=== PATIENT | male | born 1965 | race Caucasian/White ===

== ENCOUNTER 2024-05-17 09:37 | Outpatient (REF) | payer OTHER, SELFPAY ==
[2024-05-17 11:07] LABS: MANUAL DIFF FLAG NO
[2024-05-17 11:10] LABS: Basophils Percent Auto 0.5 % (0-2); Eosinophils Absolute Auto 0.1 X10*3/uL (0.0-0.4); Eosinophils Percent Auto 1.4 % (0-4); Hematocrit 42.7 % (42.0-52.0); Hemoglobin 13.9 g/dl (14.0-18.0); Imm Gran Abs Auto 0.04 X10*3/uL (0.00-0.03); Imm Gran Pct Auto 0.5 % (0.0-0.4); Lymphocytes Absolute Auto 2.8 X10*3/uL (1.2-4.9); Lymphocytes Percent Auto 35.9 % (20-40); Mean Corpuscular HGB Conc 32.6 g/dl (31.0-36.0); Mean Corpuscular Hemoglobin 29.9 pg (27.0-33.0); Mean Corpuscular Volume 91.8 fL (80.0-98.0); Mean Platelet Volume 9.8 fL (9.4-12.4); Monocytes Absolute Auto 0.6 X10*3/uL (0.1-1.2); Monocytes Percent Auto 7.5 % (2-11); Neutrophils Absolute Auto 4.3 x10*3/uL (2.0-8.3); Neutrophils Percent Auto 54.2 % (45-73); Platelet Count 247 X10*3/uL (160-400); Red Blood Count 4.65 X10*6/uL (4.60-5.80); Red Cell Distribution Width 12.9 % (11.0-16.0); White Blood Count 7.9 X10*3/uL (4.8-10.8)
[2024-05-17 11:25] LABS: Alanine Aminotransferase 38 U/L (0-40); Albumin Level 4.3 g/dL (3.5-5.0); Alkaline Phosphatase 62 U/L (39-117); Anion Gap 10 (12-20); Aspartate Amino Transferase 28 U/L (5-37); Bilirubin Total 0.4 mg/dL (0.0-1.0); Blood Urea Nitrogen 22 mg/dL (9-16); Carbon Dioxide 28 mmol/L (22-29); Chloride 104 mmol/L (96-108); Cholesterol 225 mg/dL (<200); Estimated Glomerular Filt Rate > 60; Glucose Fasting 106 mg/dL (60-99); HDL Cholesterol 65 mg/dL (>40); LDL Cholesterol Calculated 141 mg/dL (<100); Potassium 4.3 mmol/L (3.3-5.1); Sodium 138 mmol/L (135-145); Total Protein 7.2 g/dL (6.5-8.0); Triglycerides 97 mg/dL (<150)
[2024-05-17 11:50] LABS: Erythrocyte Sedimentation Rate 3 MM/HR (0-15)
[2024-05-17 11:57] LABS: Prostate Specific Antigen 0.44 ng/mL (<0.05-4.0)
== END 2024-05-17 09:38 | disposition home or self-care (01) ==
LOC: HO.10HDL 09:37
PROVIDERS: Visit Provider Internal Medicine Medical Oncology
DX: Z12.5 Encounter for screening for malignant neoplasm of prostate (principal); E78.5 Hyperlipidemia, unspecified; N40.0 Benign prostatic hyperplasia without lower urinary tract symptoms; T14.8XXA Other injury of unspecified body region, initial encounter
CPT/HCPCS: 36415; 80053; 80061; 84153; 85025; 85652

== ENCOUNTER 2025-05-22 10:02 | Outpatient (REF) | payer OTHER, SELFPAY ==
--- OUTSIDE RECORDS SUMMARY | 2024-05-09 04:36 | XMS_ITS ---
Author Organization Tristen Braxton III, MD Address [address] [place] [address] [place] [address] Care Team Providers Care Supervisor Machine Setter Name Role Phone Dr. Tristen Braxton III Primary Care Provider [phone] REASON FOR VISIT ? Rx Social History Sex Assigned At : Social History Observation Description Sex Assigned At Male Encounters Encounter Location Date Provider Diagnosis Tristen Braxton III, MD [address] [place] [address] [place] [address] 05/09/2024 Tristen Braxton Plan Of Treatment Next Appt Details Provider Name:Tristen Braxton , 05/26/2025 01:45:00 PM, [address] [place] [address] [address], [place], [address], Progress Notes * LUCIO BACONDOB: [birth year] (58 yo M)Acc No.[id number]:05/09/2024 Patient: Bulmaro LUCIO DIEHL :1965 A ge:58 Y S ex:Male Address:[address], [address], [place], [address] * true * Date: Generated for Tin george/Slim/eTransmitting on: 07/22/2024 09:01 PM EST
--- OUTSIDE RECORDS SUMMARY | 2024-05-09 06:25 | XMS_ITS ---
Author Organization Tristen Braxton III, MD Address [address] [place] [address] [place] [address] Care Team Providers Care News Videotape Editor Name Role Phone Dr. Tristen Braxton III Primary Care Provider [phone] Medications Medication SIG (Take, Route, Frequency, Duration) Notes Start Date End Date Status Amoxicillin-Pot Clavulanate 875-125 MG 1 tablet Orally every 12 hrs for 7 days 05/09/2024 05/16/2024 Active Social History Sex Assigned At : Social History Observation Description Sex Assigned At Male Encounters Encounter Location Date Provider Diagnosis Tristen Braxton III, MD [address] [place] [address] [place] [address] 05/09/2024 Tristen Braxton Plan Of Treatment Medication Medication Name Sig Start Date Stop Date Notes Amoxicillin-Pot Clavulanate 875-125 MG 1 tablet Orally every 12 hrs for 7 days 05/09/2024 05/16/2024 Next Appt Details Provider Name:Tristen Braxton , 05/26/2025 01:45:00 PM, [address] [place] [address] [place], [address], Progress Notes * LUCIO FERRERDOB: [birth year] (58 yo M)Acc No.[id number]:05/09/2024 Patient: Bulmaro SHANITALUCIO :1965 A ge:58 Y S ex:Male Address:[address], [address], [place], [address] * Refills Start Amoxicillin-Pot Clavulanate Tablet, 875-125 MG, Orally, 14 Tablet, 1 tablet, every 12 hrs, 7 days, Refills=0 * true * Date: Generated for Tin george/Slim/Hudson on: 07/22/2024 08:57 PM EST
--- OUTSIDE RECORDS SUMMARY | 2024-05-11 05:00 | XMS_ITS ---
Author Organization Tristen Braxton III, MD Address [address] [place] [address] [place] [address] Care Team Providers Care Jet Blade Polisher Name Role Phone Dr. Tristen Braxton III Primary Care Provider Allergies Allergen (clinical drug ingredient) Drug/Non Drug Allergy documented on EMR Reaction Allergy Type Onset Date Status No Known Drug Allergy Unknown Drug Allergy Active Reason For Referral Reason Consult and treat Hearing loss, Vertigo, Tinnitus, right ear pain for 1 month no result with Rx's Diagnosis 1 Hearing loss (H91.90 ) Diagnosis 2 Vertigo (R42) Diagnosis 3 Ear pain, right (H92 .01) Diagnosis 4 Tinnitus (H93.19) Referral Organization Tristen Braxton III, MD Referring Provider First Name Tristen Referring Provider Last Name Irais Referring Provider Speciality Internal M edicine Referred Provider [facility], [facility], [facility] Referred Provider Specialty Otolaryngolo gy General Notes Denisse Franco 05/13/2024 10:38:53 AM > Referral, cover sheet and progress note faxed, Denisse Franco 05/19/2024 09:45:16 AM > patient is scheduled with Dr. Hyman on 06/14/24 Referral Priority Routine Referral Appointment Date 06/14/2024 REASON FOR VISIT Vertigo, Labyrinthitis, Hearing loss, Tinnitus Medications Medication SIG (Take, Route, Frequency, Duration) Notes Start Date End Date Status Triamcinolone Acetonide 0.1 % APPLY DAILY TO SKIN TO AFFECTED AREA TWICE A DAY FOR 2 WEEKS Active Meclizine HCl 25 MG 1 tablet as needed Orally every 8 hrs 05/02/2024 Active predniSONE 20 MG 1 tablet with food o r milk Orally Once a day for 10 days 05/11/2024 05/31/2024 Active Amoxicillin-Pot Clavulanate 875-125 MG 1 tablet Orally every 12 hrs 05/09/2024 Active Social History Tobacco Use: Social History Observation Description Date Details (start date - stop date) Former Smoker NA - NA Sex Assigned At : Social History Observation Description Sex Assigned At Male Tobacco Use/Smoking Question Answer Notes Patient is a former smoker How long has it been since you last smoked? > 10 years Additional Findings: Tobacco Non-User Ex-cigaret te smoker Encounters Encounter Location Date Provider Diagnosis Tristen Braxton III, MD [address] [place] [address] [address] [place], [place] [address] 05/11/2024 Tristen Braxton Hearing loss H91.90 ; Vertigo R42 ; Tinnitus H93.19 ; Ear pain, right H92.01 ; Chronic GERD K21.9 and Former smoker Z87.891 Assessments Encounter Date Diagnosis (ICD Code) Assessment Notes Treatment Notes Treatment Clinical Notes 05/11/2024 Hearing loss (ICD-10 - H91.90) . He reports mild to moderate hearing loss in each year, which is now worse on the right side 05/11/2024 Vertigo (ICD-10 - R42) He reports that at least at some time. The vertigo which she describes as assess spinning motion or lightheadedness or dizziness was precipitated or augmented by motion of his head toward changing position 05/11/2024 Tinnitus (ICD-10 - H93.19) He says he has been having mild tinnitus in the right ear 05/11/2024 Ear pain, right (ICD-10 - H92.01) . He specifically denies having here pain. 05/11/2024 Chronic GERD (ICD-10 - K21.9) He was continued on as needed liquid antacids and omeprazole. 05/11/2024 Former smoker (ICD-10 - Z87.891) He has a plan to prevent relapse in times of stress and illness. Plan Of Treatment Medication Medication Name Sig Start Date Stop Date Notes Triamcinolone Acetonide 0.1 % APPLY RERE Y TO SKIN TO AFFECTED AREA TWICE A DAY FOR 2 WEEKS Meclizine HCl 25 MG 1 tablet as needed O rally every 8 hrs 05/02/2024 predniSONE 20 MG 1 tablet with food o r milk Orally Once a day for 10 days 05/11/2024 05/31/2024 Amoxicillin-Pot Clavulanate 875-125 MG 1 tablet Orally every 12 hrs 05/09/2024 Pending Test Test Name Order Date MRI BRAIN W&WO CONTRAST 05/11/2024 Referrals Referral Date Details 05/11/2024 05/11/2024, Consult and treat Hearing loss, Vertigo, Tinnitus, right ear pain for 1 month no result with Rx's, of [place], [facility] Next Appt Details Follow Up: 2 - 3 Days, Reaso n: Office visit Provider Name:Tristen Braxton , 05/26/2025 01:45:00 PM, [address] [place] [address] DR [facility] Becky, [place], [address], Progress Notes * LUCIO BACONDOB: [birth year] (58 yo M)Acc No.[id number]:05/11/2024 Patient: LUCIO OBRIEN Provider: Berny Braxton MD :1965 A ge:58 Y S ex:Male Date:05/11/2024 Address:[address] [place] [address], [address] Subjective: * Chief Complaints: * V ertigoLabyrinthitisHearing lossTinnitus * HPI: * : This telehealth visit took place over 15 min. with the patient at home and me in my office. He gave consent for billing. He says that he was well until the weekend of April 23 and 2023. At that time, while driving to maintain he became dizzy and lightheaded this affect his ability to drive and to balance. He was unsteady walking. At that time. He has not had this happened to him ever before and he was quite concerned. He came to the office May 02, 2024 for a same day visit he gave a history that turning his head or change in his physician actively stimulated balance issues and dizziness. This rraises the question of benign positional vertigo. This was also accompanied by a candidate no loss of hearing in the right ear.He has been placed on an antibiotic for potential ear infection as he has a history of serous otitis. This was continued for another week. However, the combination of unilateral hearing loss, vertigo and tenderness raises the question of a brain lesion. I have ordered an MRI of the brain to be done as soon as possible and placed him on a course of prednisone 20 mg daily for 10 days. I have referred him to your nose and throat. A followup visit in a short time was arranged. 2 of his children her physicians and I urged him to have them call me if they wish to discuss this. Telehealth L ocation of provider rendering services: { ...} [address] [facility] [address] L ocation of patient: reji cotton listed in demographics for today's visit P atient identification confirmed using: ANASTASIA Gustafson ame T elehealth method: T elephone only. Patient not visible to care provider. C onsent: P atient verbally consented to treatment, Patient verbally consented to billing insurance company, Patient informed of any privacy concerns related to method of visit T otal time spent with patient (mins) 1 5 * ROS: G eneral/Constitutional: pain N o further pain in the right ear. C hills d enies. F atigue a dmits. F ever d enies. E NT: Decreased hearing B ilateral hearing loss, worse on the right. R espiratory: Cough d enies. C ardiovascular: Chest pain with exertion d enies. D yspnea on exertion?denies. S hortness of breath d enies. G astrointestinal: Constipation o ccasional. D ecreased appetite d enies. D iarrhea d enies. H eartburn d enies. N ausea d enies. R ectal bleeding d enies. V omiting d enies. H ematology: bruising d enies. p etechiae d enies. S wollen glands n one have been noted. G enitourinary: Frequent urination o nce a night. M usculoskeletal: Muscle aches d enies. P ainful joints d enies. S ciatica d enies. W eakness d enies. S kin: Itching d enies. R davina d enies. S kin lesion(s)?denies. N eurologic: Difficulty speaking d enies. D izziness d enies.?Headache d enies. L ow back pain d enies. P sychiatric: Depressed mood d enies. * Medical History: * Surgical History: r ight knee arthroscopy x2 2013left foot bone spur 2016upper endoscopy for esophagitis, Dr. Mark resected bunion left foot No history * Hospitalization/Major Diagno stic Procedure: N o history * Family History: F ather: 77 yrs, Cerebellar ataxia, wheelchair bound for 12 years, diagnosed with HTN. M other: alive 83 yrs, Hypertension, diagnosed with HTN. 2 sister(s) - healthy. 2 daughter(s) - healthy. . A cousin has diabetes. His children are healthy and well. His sisters are healthy and well. One has back problems. He is not aware of any family history of substance use disorder or addiction, or mental illness. * Social History: T obacco Use: T obacco Use/Smoking P atient is a f ormer smoker H ow long has it been since you last smoked??> 10 years A dditional Findings: Tobacco Non-User E x-cigarette smoker Link tucker has been to Ruth Ann for 26 years. They have 2 daughters and no grandchildren. 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 * Medications: T akingTriamcinolone Acetonide 0.1 % Cream APPLY DAILY TO SKIN TO AFFECTED AREA TWICE A DAY FOR 2 WEEKS Meclizine HCl 25 MG Tablet 1 tablet as needed Orally every 8 hrs Amoxicillin-Pot Clavulanate 875-125 MG Tablet 1 tablet Orally every 12 hrs , stop date 05/16/2024Taking Triamcinolone Acetonide 0.1 % Cream APPLY DAILY TO SKIN TO AFFECTED AREA TWICE A DAY FOR 2 WEEKS Taking Meclizine HCl 25 MG Tablet 1 tablet as needed Orally every 8 hrs Taking Amoxicillin-Pot Clavulanate 875-125 MG Tablet 1 tablet Orally every 12 hrs , stop date 05/16/2024 * Allergies: N o Known Drug Allergy Objective: * Vitals: Assessment: * Assessment: 1. H earing loss - H91.90 (Primary) N otes :. He reports mild to moderate hearing loss in each year, which is now worse on the right side 2 . V ertigo - R42 N otes :He reports that at least at some time. The vertigo which she describes as assess spinning motion or lightheadedness or dizziness was precipitated or augmented by motion of his head toward changing position 3 . T innitus - H93.19 N otes :He says he has been having mild tinnitus in the right ear 4 . E ar pain, right - H92.01 N otes :. He specifically denies having here pain. 5 . C hronic GERD - K21.9 N otes :He was continued on as needed liquid antacids and omeprazole. 6 . F ormer smoker - Z87.891 N otes :He has a plan to prevent relapse in times of stress and illness. Plan: * Treatment: 2. V ertigo I maging: MRI BRAIN W&WO CONTRAST Referral To:[email or web address] Reason:Consult and treat Hearing loss, Vertigo, Tinnitus, right ear pain for 1 month no result with Rx's 3. T innitus I maging: MRI BRAIN W&WO CONTRAST Referral To:[facility] Reason:Consult and treat Hearing loss, Vertigo, Tinnitus, right ear pain for 1 month no result with Rx's 4. E ar pain, right I maging: MRI BRAIN W&WO CONTRAST Referral To:[facility] Reason:Consult and treat Hearing loss, Vertigo, Tinnitus, right ear pain for 1 month no result with Rx's 5. O thers Start predniSONE Tablet, 20 MG, 1 tablet with food or milk, Orally, Once a day, 10 days, 10 Tablet, Refills 1. * Procedure Codes: 9 [id number] PHONE E/M BY PHYS 11-20 MIN * Preventive Medicine: Counseling: C are goal follow-up plan: Counseling for abnormal BMI given Y es Above Normal BMI Follow-up D ietary management education, guidance, and counseling, Dietary needs education S moking/Tobacco Use Patient counseled on the dangers of tobacco use and urged to quit. 1 07/11/2023 * Follow Up: 2 - 3 Days (Reason: Office visit) * Images: * Sign off status: Completed true * Provider: Berny Braxton MD Date: 07/11/2023 Generated for Purnimai ariel/Slim/eTransmitting on: 07/22/2024 09:00 PM EST History and Physical Notes * HPI (History of Present Illness) Category Sub-Category Detail Notes Telehealth Location [facility]:: {...} [address] [facility] [address] Location of patient:: address listed in demographics for today's visit Patient identification confirmed using:: Name, Telehealth method:: Telephone only. Stephanie ent not visible to care provider. Consent:: Patient verbally c onsented to treatment, Patient verbally consented to billing insurance company, Patient informed of any privacy concerns related to method of visit Total time spent with patient (mins): 15 Consultation Request Notes Referral Date Referring Provider Referred Provider Not sarahy 05/11/2024 Tristen Braxton [facility], of [facility], [facility] Consult and treat Hearing loss, Vertigo, Tinnitus, right ear pain for 1 month no result with Rx's
--- OUTSIDE RECORDS SUMMARY | 2024-05-24 09:00 | XMS_ITS ---
Author Organization Tristen Braxton III, MD Address [address] [place] [address] Care Team Providers Care Technician Submarine Cable Equipment Name Role Phone Dr. Tristen Braxton III Primary Care Provider Allergies Allergen (clinical drug ingredient) Drug/Non Drug Allergy documented on EMR Reaction Allergy Type Onset Date Status No Known Drug Allergy Unknown Drug Allergy Active Results Component Value Reference Range Notes URINE DIP STICK Reviewed date:05/24/2024 02:41:09 PM Interpretation: Performing Lab: Notes/Report: SG 1.025 1.005 - 1.025 pH 5.0 5.0 - 9.0 ALIDA Negative Negative - NIT Negative Negative - PRO 15 Negative - Trace GLU Negative Negative - KET 5 Negative - UBG 0.2 0.1 - 1.8 MARILYN 1 0.2 - 1.3 BLD 50 Negative - Menstrating N/A REASON FOR VISIT Annual Exam Medications Medication SIG (Take, Route, Frequency, Duration) Notes Start Date End Date Status Triamcinolone Acetonide 0.1 % APPLY DAILY TO SKIN TO AFFECTED AREA TWICE A DAY FOR 2 WEEKS Active Meclizine HCl 25 MG 1 tablet as needed Orally every 8 hrs 05/02/2024 Active Social History Tobacco Use: Social History Observation Description Date Details (start date - stop date) Former Smoker NA - NA Sex Assigned At : Social History Observation Description Sex Assigned At Male Tobacco Use/Smoking Question Answer Notes Patient is a former smoker How long has it been since you last smoked? > 10 years Additional Findings: Tobacco Non-User Ex-cigaret te smoker Tobacco Control (Standard) Question Answer Notes Tobacco use: Former smoker How long has it been since you last smoked? Chito ter than 10 years Additional Findings: Tobacco non-user Ex-cigaret te smoker AUDIT-C (Standard) Question Answer Notes Did you have a drink containing alcohol in the p ast year? No Points 0 Interpretation Negative Vital Signs Temperature 98.8 degrees Fahrenheit 05/24/20 24 Blood pressure systolic 135 mm Hg 05/24/20 24 Blood pressure diastolic 82 mm Hg 024 Heart Rate 82 /min 05/24/2024 Height 73 in 05/24/2024 Weight 243 lbs 05/24/2024 BMI 32.06 kg/m2 05/24/2024 Encounters Encounter Location Date Provider Diagnosis Tristen Braxton III, MD [address] [place] [address] [place] [address] 05/24/2024 Tristen Braxton Hearing loss H91.90 ; Hyperlipidemia, unspecified hyperlipidemia type E78.5 ; Chronic GERD K21.9 ; Other obesity due to excess calories E66.09 and BPH (benign prostatic hypertrophy) N40.0 Assessments Encounter Date Diagnosis (ICD Code) Assessment Notes Treat ment Notes Treatment Clinical Notes 05/24/2024 Hearing loss (ICD-10 - H91.90) . He reports mild to moderate hearing loss in each year, which is now worse on the right side. He will continue to be seen by ENT. 05/24/2024 Hyperlipidemia, unspecified hyperlipidemia type (ICD-10 - E78.5) Comprehensive blood work has been ordered. 05/24/2024 Chronic GERD (ICD-10 - K21.9) He was continued on as needed liquid antacids and omeprazole. 05/24/2024 Other obesity due to excess calories (ICD-10 - E66.09) We have discussed weight loss strategies. We discussed diet and nutrition. We made a plan to lose weight, irregular, one half of a pound per week.He has gained 5 pounds since his last visit. 05/24/2024 BPH (benign prostati c hypertrophy) (ICD-10 - N40.0) His BPH is stable with nocturia oncee a night. We have discussed lifestyle modifications he could make to relieve this. Plan Of Treatment Medication Medication Name Sig Start Date Stop Date Notes Triamcinolone Acetonide 0.1 % APPLY RERE Y TO SKIN TO AFFECTED AREA TWICE A DAY FOR 2 WEEKS Meclizine HCl 25 MG 1 tablet as needed O rally every 8 hrs 05/02/2024 Next Appt Details Follow Up: 2 Months, After t he appointment with Dr. Hyman, Reason: ov no tests, To discuss the results of the MRI and the ENT consultation Provider Name:Tristen Braxton , 05/26/2025 01:45:00 PM, [address] [place] [address], [address], Progress Notes * LUCIO BACONDOB: [birth year] (58 yo M)Acc No.[id number]:05/24/2024 Progress Notes Patient: LUCIO OBRIEN Provider: Berny Braxton MD :1965 A ge:58 Y S ex:Male Date:05/24/2024 Address:[address] [place] [address], [id number] Subjective: * Chief Complaints: * A nnual Exam * HPI: D epression Screening: PHQ-9 L ittle interest or pleasure in doing things?Not at all F eeling down, depressed, or hopeless N ot at all T rouble falling or staying asleep, or sleeping too much N ot at all F eeling tired or having little energy N ot at all P oor appetite or overeating N ot at all F eeling bad about yourself or that you are a failure, or have let yourself or your family down N ot at all T rouble concentrating on things, such as reading the newspaper or watching television N ot at all M oving or speaking so slowly that other people could have noticed; or the opposite, being so fidgety or restless that you have been moving around a lot more than usual N ot at all T houghts that you would be better off or of hurting yourself in some way N ot at all T otal Score 0 C OVID-19 Screening: Questions H ave you experienced fever, chills, cough, sore throat, shortness of breath, difficulty breathing, muscle aches, loss of taste or smell? N o H ave you been exposed to the virus within the last 10 days? N o H ave you travelled internationally in the last 10 days? N o H ave you been exposed to COVID-19 in the past? Y es S ALVINO Questions: SDOH Questions I n the past year have you been worried about losing your housing? N o I n the past year have you or any family members you live with been unable to get any of the following when it was really needed? Check all that apply: Salvador edmond to answer * : The patient, a 58-year-old male, has been experiencing fluctuations in his blood pressure, with readings ranging from 150/82 to 135/84. These fluctuations seem to occur more frequently in the morning, upon waking up, and after physical exertion, such as putting hay up in a barn. The patient also reported feeling unwell for about six to seven weeks, with symptoms including a dull headache and fatigue. He also reported having difficulty sleeping due to nasal congestion. The patient has been using Flonase, a topical steroid, and Claritin, an ayci-yex-ihvvpcw drug for congestion, to manage his symptoms. He also occasionally uses Afrin to help with sleep. The patient has noticed a decrease in hearing in his right ear. * ROS: G eneral/Constitutional: pain o nly normal aches and pains. C hills d enies.?Admits reji Macias dmits. F ever d enies. A dmits H eadache. ? E NT: Decreased hearing m ild. R espiratory: Cough d enies. C ardiovascular: [...] dditional Findings: Tobacco Non-User E x-cigarette smoker Tobacco Control (Standard) T obacco use: F ormer smoker H ow long has it been since you last smoked??Greater than 10 years A dditional Findings: Tobacco non-user E x-cigarette smoker D rugs/Alcohol: D rugs H ave you used drugs other than those for medical reasons in the past 12 months? N o D rug/Alcohol: A STEPHANIE-C (Standard) D id you have a drink containing alcohol in the past year? N o P oints 0 I nterpretation N egative Link tucker has been to Ruth Ann for 26 years. They have 2 daughters and no grandchildren. 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 * Medications: T akingTriamcinolone Acetonide 0.1 % Cream APPLY DAILY TO SKIN TO AFFECTED AREA TWICE A DAY FOR 2 WEEKS Meclizine HCl 25 MG Tablet 1 tablet as needed Orally every 8 hrs Taking Triamcinolone Acetonide 0.1 % Cream APPLY DAILY TO SKIN TO AFFECTED AREA TWICE A DAY FOR 2 WEEKS Taking Meclizine HCl 25 MG Tablet 1 tablet as needed Orally every 8 hrs DiscontinuedpredniSONE 20 MG Tablet 1 tablet with food or milk Orally Once a day , stop date 4Amoxicillin-Pot Clavulanate 875-125 MG Tablet 1 tablet Orally every 12 hrs Medication List reviewed and reconciled with the patientDiscontinued predniSONE 20 MG Tablet 1 tablet with food or milk Orally Once a day , stop date 4Discontinued Amoxicillin-Pot Clavulanate 875-125 MG Tablet 1 tablet Orally every 12 hrs Medication List reviewed and reconciled with the patient * Allergies: N o Known Drug Allergyno[Allergies Verified] Objective: * Vitals: H t: 73, Wt: 243, BMI:32.06, BP: 135/82, HR: 82, Temp: 98.8, Wt-k.22. * Examination: G eneral Examination: GENERAL APPEARANCE: p leasant, well nourished, well developed, in no acute distress, calm and relaxed, obese, man. HEAD: a traumatic, normocephalic. EYES: e nanci, perrla, anicteric, conjugate. EARS: a natomically normal. NOSE: s eptum intact. ORAL CAVITY: n ormal, unremarkable. NECK/THYROID: n o jugular venous distention, no carotid bruit, thyroid normal. LYMPH NODES: n o enlarged lymph nodes,spleen normal. SKIN: n o suspicious lesions, anicteric. HEART: n o clicks, gallops, murmurs, or rubs, regular rhythm, S1, S2 normal, no s3, or vascular bruits. LUNGS: c lear to auscultation . BREASTS: no masses palpable bilaterally. ABDOMEN: b owel sounds normal, no ascites, no organomegaly, no mass, centripital obesity. RECTAL EXAM: prostate normal, stool guaiac negative.? MUSCULOSKELETAL: e xtremities unremarkable, no clubbing, cyanosis or edema. PERIPHERAL PULSES: n ormal. NEUROLOGIC: a lert and oriented, cranial nerves 2-12 grossly intact, deep tendon reflexes 2+ symmetrical, motor strength normal upper and lower extremities, sensory exam intact. PSYCH: a lert, oriented. Assessment: * Assessment: 1. H yperlipidemia, unspecified hyperlipidemia type - E78.5 (Primary) N otes :Comprehensive blood work has been ordered. 2 . H earing loss - H91.90 N otes :. He reports mild to moderate hearing loss in each year, which is now worse on the right side. He will continue to be seen by ENT. 3 . C hronic GERD - K21.9 N otes :He was continued on as needed liquid antacids and omeprazole. 4 . O ther obesity due to excess calories - E66.09 N otes :We have discussed weight loss strategies. We discussed diet and nutrition. We made a plan to lose weight, irregular, one half of a pound per week.He has gained 5 pounds since his last visit. 5 . B PH (benign prostatic hypertrophy) - N40.0 N otes :His BPH is stable with nocturia oncee a night. We have discussed lifestyle modifications he could make to relieve this. Plan: * Treatment: * Labs: * L ab: URINE DIP STICK (Collection Date & Time - 05/24/2024) Value Reference Range S G 1.025 1.005 - 1.025 * p H 5.0 5.0 - 9.0 * L EU Negative Negative - * N IT Negative Negative - * P RO 15 Negative - Trace * G ELIZABETH Negative Negative - * K ET 5 Negative - * U BG 0.2 0.1 - 1.8 * B IL 1 0.2 - 1.3 * B LD 50 Negative - * M enstrating N/A * Procedure Codes: 8 1002 URINE-NO MICRO * Preventive Medicine: Counseling: C are goal follow-up plan: Counseling for abnormal BMI given Y es Above Normal BMI Follow-up D ietary management education, guidance, and counseling, Dietary needs education, Exercise promotion: strength training, Exercise promotion: stretching, Feeding regime, Giving encouragement to exercise, Lifestyle education regarding diet, Nutrition / feeding management, Nutrition therapy, Prescribed activity/exercise education, Prescribed diet education, Prescribed dietary intake, Special diet education, Weight monitoring , Intervention, Order not done: Medical or Other reason not done S moking/Tobacco Use Patient counseled on the dangers of tobacco use and urged to quit. 1 07/23/2023 * Follow Up: 2 Months, After the appointment with Dr. Hyman (Reason: ov no tests, To discuss the results of the MRI and the ENT consultation) * Images: * Sign off status: Completed true * Provider: Berny Braxton MD Date: 07/24/2023 Generated for Printi ng/Gildag/eTransmitting on: 07/22/2024 08:58 PM EST History and Physical Notes * HPI (History of Present Illness) Category Sub-Category Detail Notes Depression Screening PHQ-9 Little inte rest or pleasure in doing things: Not at all Feeling down, depressed, or hopeless: No t at all Trouble falling or staying asleep, or sl eeping too much: Not at all Feeling tired or having little energy: N ot at all Poor appetite or overeating: Not at all Feeling bad about yourself o r that you are a failure, or have let yourself or your family down: Not at all Trouble concentrating on thi ngs, such as reading the newspaper or watching television: Not at all Moving or speaking so slowly that other people could have noticed; or the opposite, being so fidgety or restless that you have been moving around a lot more than usual: Not at all Thoughts that you would be b dillon off or of hurting yourself in some way: Not at all Total Score: 0 COVID-19 Screening Questions Have you had any new onset fever, chills, cough, congestion, sore throat, shortness of breath, muscle aches?: No Have you been exposed to the virus withi n the last 10 days?: No Have you travelled internationally in e last 10 days?: No Have you been exposed to COVID-19 in the past?: Yes SDOH Questions SDOH Questions In the past year have you been worried about losing your housing?: No In the past year have you or any family members you live with been unable to get any of the following when it was really needed? Check all that apply:: Decline to answer Examination Category Sub-Category Detail Notes General Examination GENERAL APPEARANCE: pleasant , well nourished, well developed, in no acute distress, calm and relaxed, obese, man HEAD: atraumatic, normocep halic EYES: eomi, perrla, anicte jayce, conjugate EARS: anatomically normal NOSE: septum intact NECK/THYROID: no jugular venous di stention, no carotid bruit, thyroid normal HEART: no clicks, gallops, murmurs, or rubs, regular rhythm, S1, S2 normal, no s3, or vascular bruits LUNGS: clear to auscultatio n ABDOMEN: bowel sounds normal, no ascites, no organomegaly, no mass, centripital obesity NEUROLOGIC: alert and oriented, cranial nerves 2-12 grossly intact, deep tendon reflexes 2+ symmetrical, motor strength normal upper and lower extremities, sensory exam intact SKIN: no suspicious lesion s, anicteric PERIPHERAL PULSES: normal BREASTS: no masses palpable b ilaterally MUSCULOSKELETAL: extremities unremark able, no clubbing, cyanosis or edema LYMPH NODES: no enlarged lymph no joao,spleen normal RECTAL EXAM: prostate normal, sto ol guaiac negative PSYCH: alert, oriented ORAL CAVITY: normal, unremarkable
--- OUTSIDE RECORDS SUMMARY | 2024-06-20 12:00 | XMS_ITS ---
Author Organization Tristen Braxton III, MD Address [address] [place] [address] [place] [address] Care Team Providers Care Software Quality Automation Engineer Name Role Phone Dr. Tristen Braxton III Primary Care Provider REASON FOR VISIT Annual Exam Social History Sex Assigned At : Social History Observation Description Sex Assigned At Male Encounters Encounter Location Date Provider Diagnosis Tristen Braxton III, MD [address] [place] [address] [place] [address] 06/20/2024 Tristen Braxton Plan Of Treatment Next Appt Details Provider Name:Tristen Braxton , 05/26/2025 01:45:00 PM, [address] [place] [address] [place], [place], [address], Progress Notes * LUCIO FERRERDOB: [birth year] (59 yo M)Acc No.[id number]:06/20/2024 Progress Notes Patient: LUCIO OBRIEN Provider: Berny Braxton MD :1965 A ge:58 Y S ex:Male Date:06/20/2024 Address:[address], [address], [place], [place] Subjective: * Chief Complaints: * 1 . Annual Exam. * Medical History: Objective: * Vitals: Assessment: Plan: * Treatment: * Images: * The named appointment provid er may or may not be the originator of this progress note, and it is not deemed complete until electronically signed by the appointment provider. Sign off status: Pending * Provider: Berny Braxton MD Date: 1 08/21/2023 Generated for Tin george/Slim/Hudson on: 07/22/2024 08:59 PM EST
--- OUTSIDE RECORDS SUMMARY | 2024-07-19 09:00 | XMS_ITS ---
Author Organization Tristen Braxton III, MD Address [address] [place] [address] Care Team Providers Care Flat Lock Operator Name Role Phone Dr. Tristen Braxton III Primary Care Provider REASON FOR VISIT Lab request Social History Sex Assigned At : Social History Observation Description Sex Assigned At Male Encounters Encounter Location Date Provider Diagnosis Tristen Braxton III, MD [address] [place] [address] [place] [address] 07/19/2024 Tristen Braxton Hyperlipidemia, unspecified hyperlipidemia type E78.5 ; Chronic GERD K21.9 and BPH (benign prostatic hypertrophy) N40.0 Assessments Encounter Date Diagnosis (ICD Code) Assessment Notes Treat ment Notes Treatment Clinical Notes 07/19/2024 Hyperlipidemia, unspecified hyperlipidemia type (ICD-10 - E78.5) 07/19/2024 Chronic GERD (ICD-10 - K21.9) 07/19/2024 BPH (benign prostati c hypertrophy) (ICD-10 - N40.0) Plan Of Treatment Pending Test Test Name Order Date PROFILE, FASTING (COMPREHENSIVE METABOLI C) 07/19/2024 PSA, TOTAL 07/19/2024 CBC w DIFF 07/19/2024 Lipid Panel 07/19/2024 Next Appt Details Provider Name:Tristen Barxton , 05/26/2025 01:45:00 PM, [address] [place] [address] [place], [address], Progress Notes * LUCIO BACONDOB: [birth year] (59 yo M)Acc No.[id number]:07/19/2024 Patient: LUCIO OBRIEN :1965 A ge:59 Y S ex:Male Address:[address] [place] [address], [address], [address] Subjective: * Chief Complaints: * L ab request * Medical History: * Surgical History: * Hospitalization/Major Diagno stic Procedure: * Medications: Objective: * Vitals: * Physical Examination: Assessment: * Assessment: 1. H yperlipidemia, unspecified hyperlipidemia type - E78.5 2 . C hronic GERD - K21.9 3 . B PH (benign prostatic hypertrophy) - N40.0 Plan: * Treatment: 2. C hronic GERD L AB: PROFILE, FASTING (COMPREHENSIVE METABOLIC) L AB: PSA, TOTAL L AB: CBC w DIFF L AB: Lipid Panel 3. B PH (benign prostatic hypertrophy) L AB: PROFILE, FASTING (COMPREHENSIVE METABOLIC) L AB: PSA, TOTAL L AB: CBC w DIFF L AB: Lipid Panel * Procedure Codes: * true * Date: Generated for Tin george/Slim/eTransmitting on: 07/22/2024 08:58 PM EST
--- OUTSIDE RECORDS SUMMARY | 2024-07-20 07:15 | XMS_ITS ---
Author Organization Tristen Braxton III, MD Address [address] [place] [address] [place] [address] Care Team Providers Care Hat Brusher Machine Name Role Phone Dr. Tristen Braxton III Primary Care Provider [phone] Allergies Allergen (clinical drug ingredient) Drug/Non Drug Allergy documented on EMR Reaction Allergy Type Onset Date Status No Known Drug Allergy Unknown Drug Allergy Active REASON FOR VISIT Follow up Medications Medication SIG (Take, Route, Frequency, Duration) [...] has it been since you last smoked? Grea ter than 10 years Additional Findings: Tobacco non-user Ex-cigaret te smoker Encounters Encounter Location Date Provider Diagnosis Tristen Braxton III, MD [address] [place] [address] [place] [address] 07/20/2024 Tristen Braxton Hearing loss H91.90 Assessments Encounter Date Diagnosis (ICD Code) Assessment Notes Treatment Notes Treatment Clinical Notes 07/20/2024 Hearing loss (ICD-10 - H91.90) . He reports mild to moderate hearing loss in each year, which is now worse on the right side. He will continue to be seen by ENT. Plan Of Treatment Medication Medication Name Sig Start Date Stop Date Notes Triamcinolone Acetonide 0.1 % APPLY RERE Y TO SKIN TO AFFECTED AREA TWICE A DAY FOR 2 WEEKS Meclizine HCl 25 MG 1 tablet as needed O rally every 8 hrs 05/02/2024 Next Appt Details Provider Name:Tristen Braxton , 05/26/2025 01:45:00 PM, [address] [place] [address] DR, [place] [address], [place], [address], Progress Notes * LUCIO BACONDOB: [birth year] (59 yo M)Acc No.[id number]:07/20/2024 Progress Notes Patient: LUCIO OBRIEN Provider: Berny Braxton MD :1965 A ge:59 Y S ex:Male Date:07/20/2024 Address:[address] [place], [place] [id number] Subjective: * Chief Complaints: * 1 . Follow up. * HPI: C OVID-19 Screening: Questions H ave you had any new onset fever, chills, cough, congestion, sore throat, shortness of breath, muscle aches? N o * ROS: G eneral/Constitutional: pain o nly normal aches and pains. C hills d enies.?Fatigue a dmits. F ever d enies. E NT: Decreased hearing d enies. R espiratory: Cough d enies. C ardiovascular: Chest pain with exertion d enies. D yspnea on exertion?denies. S hortness of breath d enies. G astrointestinal: Constipation d enies. D ecreased appetite d enies.?Diarrhea d enies. H eartburn d enies. N ausea d enies. R ectal bleeding?denies. V omiting d enies. H ematology: bruising d enies. p etechiae d enies. S wollen glands n one have been noted. G enitourinary: Frequent urination d enies. M usculoskeletal: Muscle aches d enies. P ainful joints d enies. S ciatica d enies. W eakness d enies. S kin: Itching d enies. R davina d enies. S kin lesion(s)?denies. N eurologic: Difficulty speaking d enies. D izziness d enies.?Headache d enies. L ow back pain d enies. P sychiatric: Depressed mood d enies. * Medical History: G erd, Childhood heart murmur, Obesity, Hyperlipidemia, Bunion left foot requiring surgery, resected cyst on the right patella March 2013, Allergy to shellfish, Tinnitus, hearing loss, vertigo, right ear. * Surgical History: r ight knee arthroscopy x2 2012, left foot bone spur 2015, upper endoscopy for esophagitis, Dr. Mark , resected bunion left foot , No history . * Hospitalization/Major Diagno stic Procedure: N o history . * Family History: F ather: 77 yrs, [...] dditional Findings: Tobacco non-user E x-cigarette smoker Link tucker has been to Ruth Ann for 26 years. They have 2 daughters and no grandchildren. 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 * Medications: T aking Triamcinolone Acetonide 0.1 % Cream APPLY DAILY TO SKIN TO AFFECTED AREA TWICE A DAY FOR 2 WEEKS , Taking Meclizine HCl 25 MG Tablet 1 tablet as needed Orally every 8 hrs , Medication List reviewed and reconciled with the patient * Allergies: N o Known Drug Allergy. Objective: * Vitals: * Examination: G eneral Examination: GENERAL APPEARANCE: p leasant, well nourished, well developed, in no acute distress, calm and relaxed. HEAD: a traumatic, normocephalic. EYES: e nanci, perrla, anicteric, conjugate. EARS: n ormal. NOSE: s eptum intact. ORAL CAVITY: n [...] sounds normal, no ascites, no organomegaly, no mass. RECTAL EXAM: n ot examined. MUSCULOSKELETAL: e xtremities unremarkable, no clubbing, cyanosis or edema. PERIPHERAL PULSES: n ormal. NEUROLOGIC: a lert and oriented, cranial nerves 2-12 grossly intact, deep tendon reflexes 2+ symmetrical, motor strength normal upper and lower extremities, sensory exam intact. PSYCH: a lert, oriented. Assessment: * Assessment: 1. H earing loss - H91.90 N otes :. He reports mild to moderate hearing loss in each year, which is now worse on the right side. He will continue to be seen by ENT. Plan: * Treatment: * Images: * The named appointment provid er may or may not be the originator of this progress note, and it is not deemed complete until electronically signed by the appointment provider. Sign off status: Pending * Provider: Berny Braxton MD Date: 0 07/20/2024 Generated for Tin george/Slim/Hudson on: 07/22/2024 08:59 PM EST History and Physical Notes * HPI (History of Present Illness) Category Sub-Category Detail Notes COVID-19 Screening Questions Have you had any new onset fever, chills, cough, congestion, sore throat, shortness of breath, muscle aches?: No Examination Category Sub-Category Detail Notes General Examination GENERAL APPEARANCE: pleasant , well nourished, well developed, in no acute distress, calm and relaxed HEAD: atraumatic, normocep halic EYES: eomi, perrla, anicte jayce, conjugate EARS: normal NOSE: septum intact NECK/THYROID: no jugular venous di stention, no carotid bruit, thyroid normal HEART: no clicks, gallops, murmurs, or rubs, regular rhythm, S1, S2 normal, no s3, or vascular bruits LUNGS: clear to auscultatio n ABDOMEN: bowel sounds normal, no ascites, no organomegaly, no mass NEUROLOGIC: alert and oriented, cranial nerves 2-12 grossly intact, deep tendon reflexes 2+ symmetrical, motor strength normal upper and lower extremities, sensory exam intact SKIN: no suspicious lesion s, anicteric PERIPHERAL PULSES: normal BREASTS: no masses palpable b ilaterally MUSCULOSKELETAL: extremities unremark able, no clubbing, cyanosis or edema LYMPH NODES: no enlarged lymph no joao,spleen normal RECTAL EXAM: not examined PSYCH: alert, oriented ORAL CAVITY: normal, unremarkable
--- OUTSIDE RECORDS SUMMARY | 2024-11-04 12:45 | XMS_ITS ---
Author Organization Tristen Braxton III, MD Address [address] [place] [address] [place] [address] Care Team Providers Care Night Nurse Name Role Phone Dr. Tristen Braxton III Primary Care Provider REASON FOR VISIT Follow up Social History Sex Assigned At : Social History Observation Description Sex Assigned At Male Encounters Encounter Location Date Provider Diagnosis Tristen Braxton III, MD [address] [place] [address] [place] [address] 11/04/2024 Tristen Braxton Plan Of Treatment Next Appt Details Provider Name:Tristen Braxton , 05/26/2025 01:45:00 PM, [address] [place] [address] [address], [place], [address], Progress Notes * LUCIO FERRERDOB: [birth year] (59 yo M)Acc No.[id number]:11/04/2024 Progress Notes Patient: LUCIO OBRIEN Provider: Berny Braxton MD :1965 A ge:59 Y S ex:Male Date:11/04/2024 Address:[address], [address], [place], [place] Subjective: * Chief Complaints: * 1 . Follow up. * Medical History: Objective: * Vitals: Assessment: Plan: * Treatment: * Images: * The named appointment provid er may or may not be the originator of this progress note, and it is not deemed complete until electronically signed by the appointment provider. Sign off status: Pending * Provider: Berny Braxton MD Date: 0 11/04/2024 Generated for Tin george/Slim/Hudson on: 1 07/22/2024 09:00 PM EST
--- OUTSIDE RECORDS SUMMARY | 2025-01-03 05:00 | XMS_ITS ---
Author Organization Tristen Braxton III, MD Address [address] [place] [address] [place] [address] Care Team Providers Care Therapeutic Massage Technician Name Role Phone Dr. Tristen Braxton III Primary Care Provider Allergies Allergen (clinical drug ingredient) Drug/Non Drug Allergy documented on EMR Reaction Allergy Type Onset Date Status No Known Drug Allergy Unknown Drug Allergy Active REASON FOR VISIT Acute bacterial bronchitis, Obesity, GERD, Benign prostatic hypertrophy, Hearing loss Medications Medication SIG (Take, Route, Frequency, Duration) Notes Start Date End Date Status Zithromax Z-Kyle 250 MG 2 tablet on the f irst day, then 1 tablet daily for 4 days Orally 2 tablets on first day then 1 tablet daily for 4 days for 5 days 01/03/2025 01/08/2025 Active Meclizine HCl 25 MG 1 tablet as needed Orally every 8 hrs 05/02/2024 Active Triamcinolone Acetonide 0.1 % APPLY DAILY TO SKIN TO AFFECTED AREA TWICE A DAY FOR 2 WEEKS Active Social History Tobacco Use: Social History Observation Description Date Details (start date - stop date) Former Smoker NA - NA Sex Assigned At : Social History Observation Description Sex Assigned At Male Tobacco Control (Standard) Question Answer Notes Tobacco use: Former smoker How long has it been since you last smoked? Chito ter than 10 years Additional Findings: Tobacco non-user Ex-cigaret te smoker Vital Signs Height 73 in 01/03/2025 Weight 243 lbs 01/03/2025 BMI 32.06 kg/m2 01/03/2025 Encounters Encounter Location Date Provider Diagnosis Tristen Braxton III, MD [address] [place] [address] [place] [address] 01/03/2025 Tristen Braxton Hearing loss H91.90 ; Acute bronchitis due to other specified organisms J20.8 ; Hyperlipidemia, unspecified hyperlipidemia type E78.5 ; Chronic GERD K21.9 ; Other obesity due to excess calories E66.09 ; Tinnitus H93.19 and Former smoker Z87.891 Assessments Encounter Date Diagnosis (ICD Code) Assessment Notes Treat ment Notes Treatment Clinical Notes 01/03/2025 Hearing loss (ICD-10 - H91.90) . He reports mild to moderate hearing loss in each year, which is now worse on the right side. He will continue to be seen by ENT. 01/03/2025 Acute bronchitis due to other specified organisms (ICD-10 - J20.8) He was given a follow-up appointment as well as a prescription for azithromycin. 01/03/2025 Hyperlipidemia, unspecified hyperlipidemia type (ICD-10 - E78.5) Comprehensive blood work has been ordered. 01/03/2025 Chronic GERD (ICD-10 - K21.9) He was continued on as needed liquid antacids and omeprazole. 01/03/2025 Other obesity due to excess calories (ICD-10 - E66.09) We have discussed weight loss strategies. We discussed diet and nutrition. We made a plan to lose weight, irregular, one half of a pound per week.He has gained 5 pounds since his last visit. 01/03/2025 Tinnitus (ICD-10 - H93.19) He says he has been having mild tinnitus in the right ear 01/03/2025 Former smoker (ICD-1 0 - Z87.891) He has a plan to prevent relapse in times of stress and illness. Plan Of Treatment Medication Medication Name Sig Start Date Stop Date Notes Zithromax Z-Kyle 250 MG 2 tablet on the f irst day, then 1 tablet daily for 4 days Orally 2 tablets on first day then 1 tablet daily for 4 days for 5 days 01/03/2025 01/08/2025 Meclizine HCl 25 MG 1 tablet as needed O rally every 8 hrs 05/02/2024 Triamcinolone Acetonide 0.1 % APPLY RERE Y TO SKIN TO AFFECTED AREA TWICE A DAY FOR 2 WEEKS Next Appt Details Follow Up: as scheduled, Mattie son: OV Provider Name:Tristen Velasquezrne , 05/26/2025 01:45:00 PM, [address] [place] [address] [address], [address], [place], [address], Progress Notes * LUCIO BACONDOB: [birth year] (59 yo M)Acc No.[id number]:01/03/2025 Patient: LUCIO OBRIEN Provider: Berny Braxton MD :1965 A ge:59 Y S ex:Male Date:01/03/2025 Address:[address] [place] [address], [facility] [id number] Subjective: * Chief Complaints: * A cute bacterial bronchitisObesityGERDBenign prostatic hypertrophyHearing loss * HPI: * : This telehealth visit took place over 15 minutes with outpatient at home and me in my office. He gave consent for billing. He is on vacation and has developed a fever and a purulent cough and a sore throat and ear pain. He was given an appointment to see me when he returns. He was given an antibiotic and instructions on symptomatic care. He will call me if he worsens. Telehealth L ocation of provider rendering services: { ...} [address] [facility] [address] L ocation of patient: reji cotton listed in demographics for today's visit P atient identification confirmed using: N jori, ANASTASIA T elehealth method: T elephone only. Patient not visible to care provider. C onsent: P atient verbally consented to treatment, Patient verbally consented to billing insurance company, Patient informed of any privacy concerns related to method of visit T otal time spent with patient (mins) 1 5 * ROS: G eneral/Constitutional: pain S ore throat. C hills d enies. F atigue?admits. F ever d enies. E NT: Decreased hearing d enies. R espiratory: Cough d enies. C ardiovascular: Chest pain with exertion d enies. D yspnea on exertion?denies. S hortness of breath d enies. G astrointestinal: Constipation o ccasional. D ecreased appetite d enies. D iarrhea d enies. H eartburn , controlled with medications. N ausea d enies. R ectal bleeding [...] Social History: T obacco Use: T obacco Control (Standard) T obacco use: F ormer smoker H ow long has it been since you last smoked??Greater than 10 years A dditional Findings: Tobacco non-user E x-cigarette smoker Link tucker has been to Ruth Ann for 26 years. They have 2 daughters and no grandchildren. 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 * Medications: T akingTriamcinolone Acetonide 0.1 % Cream APPLY DAILY TO SKIN TO AFFECTED AREA TWICE A DAY FOR 2 WEEKS Meclizine HCl 25 MG Tablet 1 tablet as needed Orally every 8 hrs Medication List reviewed and reconciled with the patientTaking Triamcinolone Acetonide 0.1 % Cream APPLY DAILY TO SKIN TO AFFECTED AREA TWICE A DAY FOR 2 WEEKS Taking Meclizine HCl 25 MG Tablet 1 tablet as needed Orally every 8 hrs Medication List reviewed and reconciled with the patient * Allergies: N o Known Drug Allergyno[Allergies Verified] Objective: * Vitals: H t: 73, Wt: 243, BMI:32.06, Wt-k.22. Assessment: * Assessment: 1. A cute bronchitis due to other specified organisms - J20.8 (Primary) N otes :He was given a follow-up appointment as well as a prescription for azithromycin. 2 . H earing loss - H91.90 N otes :. He reports mild to moderate hearing loss in each year, which is now worse on the right side. He will continue to be seen by ENT. 3 . H yperlipidemia, unspecified hyperlipidemia type - E78.5 N otes :Comprehensive blood work has been ordered. 4 . C hronic GERD - K21.9 N otes :He was continued on as needed liquid antacids and omeprazole. 5 . O ther obesity due to excess calories - E66.09 N otes :We have discussed weight loss strategies. We discussed diet and nutrition. We made a plan to lose weight, irregular, one half of a pound per week.He has gained 5 pounds since his last visit. 6 . T innitus - H93.19 N otes :He says he has been having mild tinnitus in the right ear 7 . F ormer smoker - Z87.891 N otes :He has a plan to prevent relapse in times of stress and illness. Plan: * Treatment: 2. O thers Start Zithromax Z-Kyle Tablet, 250 MG, 2 tablet on the first day, then 1 tablet daily for 4 days, Orally, 2 tablets on first day then 1 tablet daily for 4 days, 5 days, 6, Refills 0. * Procedure Codes: 9 8012 SYNCH AUDIO-ONLY EST SF 10 * Preventive Medicine: Counseling: C are goal [...] of tobacco use and urged to quit. 0 01/03/2025 * Follow Up: a s scheduled (Reason: OV) * Images: * Sign off status: Completed true * Provider: Berny Braxton MD Date: 0 01/03/2025 Generated for Tin george/Slim/Hudson on: 1 07/22/2024 08:58 PM EST History and Physical Notes * HPI (History of Present Illness) Category Sub-Category Detail Notes Telehealth Location of [facility] rendering services:: {...} [address] [place] [address] Location of patient:: address listed in demographics [...]
--- OUTSIDE RECORDS SUMMARY | 2025-01-05 05:15 | XMS_ITS ---
Author Organization Tristen Braxton III, MD Address [address] [place] [address] Care Team Providers Care Slurry Plant Operator Name Role Phone Dr. Tristen Braxton III Primary Care Provider Allergies Allergen (clinical drug ingredient) Drug/Non Drug Allergy documented on EMR Reaction Allergy Type Onset Date Status No Known Drug Allergy Unknown Drug Allergy Active azithromycin Azithromycin nausea Drug Allergy A ctive REASON FOR VISIT Telehealth, continued cough and congestion, Intolerance of a azithromycin Medications Medication SIG (Take, Route, Frequency, Duration) Notes Start Date End Date Status Amoxicillin 500 MG 1 capsule Orally ann marie ry 8 hrs for 7 days 01/05/2025 01/12/2025 Active Zithromax Z-Kyle 250 MG 2 tablet on the f irst day, then 1 tablet daily for 4 days Orally 2 tablets on first day then 1 tablet daily for 4 days 01/03/2025 Active Meclizine HCl 25 MG 1 tablet [...] te smoker Vital Signs Height 73 in 01/05/2025 Weight 243 lbs 01/05/2025 BMI 32.06 kg/m2 01/05/2025 Encounters Encounter Location Date Provider Diagnosis Tristen Braxton III, MD [address] [place] [address] [address] [place], [place] [id number] 01/05/2025 Tristen Braxton Acute bronchitis due to other specified organisms J20.8 ; Chronic GERD K21.9 ; Hyperlipidemia, unspecified hyperlipidemia type E78.5 ; Hearing loss H91.90 ; Former smoker Z87.891 and BPH (benign prostatic hypertrophy) N40.0 Assessments Encounter Date Diagnosis (ICD Code) Assessment Notes Treat ment Notes Treatment Clinical Notes 01/05/2025 Acute bronchitis due to other specified organisms (ICD-10 - J20.8) I have replacement azithromycin with amoxicillin for which is not allergic and has never been intolerant. 01/05/2025 Chronic GERD (ICD-10 - K21.9) He was continued on as needed liquid antacids and omeprazole. 01/05/2025 Hyperlipidemia, unspecified hyperlipidemia type (ICD-10 - E78.5) Comprehensive blood work has been ordered. 01/05/2025 Hearing loss (ICD-10 - H91.90) . He reports mild to moderate hearing loss in each year, which is now worse on the right side. He will continue to be seen by ENT. 01/05/2025 Former smoker (ICD-1 0 - Z87.891) He has a plan to prevent relapse in times of stress and illness. 01/05/2025 BPH (benign prostati c hypertrophy) (ICD-10 - N40.0) His BPH is stable with nocturia oncee a night. We have discussed lifestyle modifications he could make to relieve this. Plan Of Treatment Medication Medication Name Sig Start Date Stop Date Notes Amoxicillin 500 MG 1 capsule Orally ann maire ry 8 hrs for 7 days 01/05/2025 01/12/2025 Zithromax Z-Kyle 250 MG 2 tablet on the f irst day, then 1 tablet daily for 4 days Orally 2 tablets on first day then 1 tablet daily for 4 days 01/03/2025 Meclizine HCl 25 MG 1 tablet as needed O rally every 8 hrs 05/02/2024 Triamcinolone Acetonide 0.1 % APPLY RERE Y TO SKIN TO AFFECTED AREA TWICE A DAY FOR 2 WEEKS Next Appt Details Follow Up: As Scheduled, Mattie son: OV Provider Name:Tristen Braxton , 05/26/2025 01:45:00 PM, [address] [place] [address] DR, [address], [place], [address], Progress Notes * LUCIO BACONDOB: [birth year] (59 yo M)Acc No.[id number]:01/05/2025 Patient: LUCIO OBRIEN Provider: Berny Braxton MD :1965 A ge:59 Y S ex:Male Date:01/05/2025 Address:[address] [place] [address], [facility] [address] Subjective: * Chief Complaints: * T elehealthContinued cough and congestionIntolerance of a azithromycin * HPI: C OVID-19 Screening: He reports he became very nauseous with a azithromycin. He now remembers this happened once before. He has requested amoxicillin. I have given him a prescription for 500 mg 3 times a day for 7 days. Questions H ave you had any new onset fever, chills, cough, congestion, sore throat, shortness of breath, muscle aches? N o * : Telehealth L ocation of provider rendering services: { ...} [address] [facility] [address] L ocation of patient: reji somfabio listed in demographics for today's visit P [...] 1 5 * ROS: G eneral/Constitutional: pain F rom constant coughing and sore throat. C hills?associated with fever. F atigue a dmits. F ever u p to 99 degrees. ? E NT: Decreased hearing d enies. R espiratory: Cough n on-productive. C ardiovascular: Chest pain with exertion d [...] no grandchildren. 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 * Medications: T akingTriamcinolone Acetonide 0.1 % Cream APPLY DAILY TO SKIN TO AFFECTED AREA TWICE A DAY FOR 2 WEEKS Meclizine HCl 25 MG Tablet 1 tablet as needed Orally every 8 hrs Zithromax Z-Kyle 250 MG Tablet 2 tablet on the first day, then 1 tablet daily for 4 days Orally 2 tablets on first day then 1 tablet daily for 4 days , stop date 01/08/2025Medication List reviewed and reconciled with the patientTaking Triamcinolone Acetonide 0.1 % Cream APPLY DAILY TO SKIN TO AFFECTED AREA TWICE A DAY FOR 2 WEEKS Taking Meclizine HCl 25 MG Tablet 1 tablet as needed Orally every 8 hrs Taking Zithromax Z-Kyle 250 MG Tablet 2 tablet on the first day, then 1 tablet daily for 4 days Orally 2 tablets on first day then 1 tablet daily for 4 days , stop date 01/08/2025Medication List reviewed and reconciled with the patient * Allergies: N o Known Drug AllergyAzithromycin: nausea - Side Effects Objective: * Vitals: H t: 73, Wt: 243, BMI:32.06, Wt-k.22. Assessment: * Assessment: 1. A cute bronchitis due to other specified organisms - J20.8 (Primary) N otes :I have replacement azithromycin with amoxicillin for which is not allergic and has never been intolerant. 2 . C hronic GERD - K21.9 N otes :He was continued on as needed liquid antacids and omeprazole. 3 . H yperlipidemia, unspecified hyperlipidemia type - E78.5 N otes :Comprehensive blood work has been ordered. 4 . H earing loss - H91.90 N otes :. He reports mild to moderate hearing loss in each year, which is now worse on the right side. He will continue to be seen by ENT. 5 . F ormer smoker - Z87.891 N otes :He has a plan to prevent relapse in times of stress and illness. 6 . B PH (benign prostatic hypertrophy) - N40.0 N otes :His BPH is stable with nocturia oncee a night. We have discussed lifestyle modifications he could make to relieve this. Plan: * Treatment: 2. O thers Continue Zithromax Z-Kyle Tablet, 250 MG, 2 tablet on the first day, then 1 tablet daily for 4 days, Orally, 2 tablets on first day then 1 tablet daily for 4 days. * Procedure Codes: 9 8012 SYNCH AUDIO-ONLY EST SF 10 * Preventive Medicine: Counseling: C are goal follow-up plan: Counseling for abnormal BMI given Y es Above Normal BMI Follow-up D ietary management education, guidance, and counseling S moking/Tobacco Use Patient counseled on the dangers of tobacco use and urged to quit. 0 01/05/2025 * Follow Up: A s Scheduled (Reason: OV) * Images: * Sign off status: Completed true * Provider: Berny Braxton MD Date: 0 01/05/2025 Generated for Tin george/Slim/eTransmitting on: 1 07/22/2024 09:00 PM EST History and Physical Notes * HPI (History of Present Illness) Category Sub-Category Detail Notes Telehealth Location of [facility] rendering services:: {...} [address] [place] [address] Location of patient:: address listed in demographics for today's visit Patient identification confirmed using:: Name, Telehealth method:: Telephone only. Stephanie ent not visible to care provider. Consent:: Patient verbally c onsented to treatment, Patient verbally consented to billing insurance company, Patient informed of any privacy concerns related to method of visit Total time spent with patient (mins): 15 COVID-19 Screening Questions Have you had any new onset fever, chills, cough, congestion, sore throat, shortness of breath, muscle aches?: No
[2025-05-22 10:53] LABS: MANUAL DIFF FLAG NO
[2025-05-22 11:02] LABS: Hematocrit 43.1 % (42.0-52.0); Hemoglobin 14.2 g/dl (14.0-18.0); Imm Gran Abs Auto 0.01 X10*3/uL (0.00-0.03); Imm Gran Pct Auto 0.2 % (0.0-0.4); Lymphocytes Absolute Auto 1.9 X10*3/uL (1.2-4.9); Mean Corpuscular HGB Conc 32.9 g/dl (31.0-36.0); Mean Corpuscular Hemoglobin 30.4 pg (27.0-33.0); Mean Corpuscular Volume 92.3 fL (80.0-98.0); NRBC Abs Auto 0.000 X10*3/uL (0.0-0.012); NRBC Pct Auto 0.0 /100WBC (0.0-0.2); Platelet Count 232 X10*3/uL (160-400); Red Blood Count 4.67 X10*6/uL (4.60-5.80); White Blood Count 6.5 X10*3/uL (4.8-10.8)
[2025-05-22 11:23] LABS: Alanine Aminotransferase 37 U/L (0-40); Albumin Level 4.7 g/dL (3.5-5.0); Alkaline Phosphatase 65 U/L (39-117); Anion Gap 11 (12-20); Aspartate Amino Transferase 32 U/L (5-37); Blood Urea Nitrogen 21 mg/dL (9-16); Calcium 9.0 mg/dL (8.4-10.2); Carbon Dioxide 24 mmol/L (22-29); Chloride 106 mmol/L (96-108); Cholesterol 242 mg/dL (<200); Estimated Glomerular Filt Rate > 60; HDL Cholesterol 54 mg/dL (>40); Potassium 4.1 mmol/L (3.3-5.1); Sodium 137 mmol/L (135-145); Total Protein 7.5 g/dL (6.5-8.0); Triglycerides 80 mg/dL (<150)
[2025-05-22 11:33] LABS: Prostate Specific Antigen 0.29 ng/mL (<0.05-4.0)
--- OUTSIDE RECORDS SUMMARY | 2025-05-22 20:58 | XMS_ITS | Data Portability ---
Author Organization [place] - [facility], Allergy Address [address] [address] Care Team Providers Care Cloth Framer Name Role Phone YARELIS BRAXTON Primary Care Provider [phone] Assessment Encounter Date Assessment Date Assessment LastModified by Organization Details LastModified Time 06/14/2024 06/14/2024 Patient's history is consistent with acute viral labyrinthitis, which was appropriately treated with steroids. He has had resolution of symptoms. MRI scan negative for retrocochlear pathology. His audiometric testing today does show asymmetric sensorineural hearing loss which is likely related to his long history of loud noise exposure. I recommended using hearing protection for loud noise exposure going forward. [email or web address] Not available 06/14/2024 16:56:52 Plan of Treatment Reminders Order Date Submit Date Provider Last Modified By Organization Details Last Modified Time Details Appointments None record ed. Lab None record ed. Referral None record ed. Procedures None record ed. Surgeries None record ed. Imaging None record ed. Medication Orders None record ed. Patient TargetsNo targets recorded. Patient InstructionsNo instructions recorded. Reason for Referral None Reported. Results Created Date Observation Date Name Description Value Unit Range Abnormal Flag Note LastModifiedBy Organization Detail LastModifiedTime 06/13/20 24 05/25/2024 MRI, brain + brain stem, w/wo contr ast No observ ation record ed. [email or web address] [facility] [address] [facility], [place], [address], 06/13/2024 11:39:28 06/15/20 24 audio gram No observ ation record ed. BARCODE Not Available 2023 09:47:11 Result Notes None recorded. Problems Name Problem SNOMED Code Status Onset Date Resolution Date Notes Provider Name and Address Organization Details Recorded Time Allergic rhinitis 95024532 Active 2022 Other allergic rhinitis; Note: Date Diagnosed : 07/30/2022 1:36 PM (J30.89) Not Available [facility] 4 03:24:40 Otalgia of right ear 4261471704 Active 2022 Otalgia, right ear; Note: Date Diagnosed : 07/30/2022 1:30 PM (H92.01) Not Available [facility] 4 03:24:39 Bilateral exostosis of external ear canals 30903018877 40338 Active 2022 Exostosis of external canal, bilateral ; Note: Date Diagnosed : 07/30/2022 1:33 PM (H61.813) Not Available [facility] 4 03:24:39 Pain of right temporoma ndibular joint 82619425817 380383 Active 2022 Arthralgi a of right temporoma ndibular joint; Note: Date Diagnosed : 07/30/2022 1:30 PM (M26.621) Not Available [facility] 4 03:24:39 Sensorine ural hearing loss of bilateral ears 635608671 Active 2023 Melina neville [place] - [facility] 4 16:21:07 Nasal obstructi on 630410247 Active 2023 ROBE FRIEDMAN MD [address] [place] [address],[place] [address], [place], [address] , [place] - [facility] 4 16:34:36 Noise effects on inner ear 75471452 Active 2023 ROBE FRIEDMAN MD [address] [place] [address],[place] [address], [place], [address] , [place] - [facility] 4 16:36:05 Acute labyrinth itis 97643733030 4103 Active 2023 ROBE FRIEDMAN MD [address] [place] [address],[place] [address], [place], [address] , [place] - [facility] 4 16:39:16 Problem Notes None recorded. Procedures Surgical History Date Name Laterality Status Provider Name and Address Organization Details Recorded Time Comp Audio with Tymps - 44157 & 83260 completed Melina Chadwick [place] - [facility] 06/14/2024 16:21:00 operative procedure on knee completed Dot Cisse [place] - [facility] 06/14/2024 15:54:11 Imaging Results None recorded. Procedure Notes None recorded. Medical Equipment None Reported. Allergies No known drug allergies Medications Name Sig Start Date Stop Date Status Note LastModified by Organization Details LastModified Time prednisone 20 mg tablet TAKE 1 TABLET BY MOUTH EVERY DAY WITH FOOD OR MILK FOR 10 DAYS 06/14 completed Not Available Not Available Not Available triamcinolo ne acetonide 0.1 % topical cream APPLY TO AFFECTED AREA ON SKIN TWICE A DAY FOR 2 WEEKS active Not Available Not Available No t Available meclizine 25 mg tablet TAKE 1 TABLET BY MOUTH EVERY 8 HOURS NEEDED FOR 10 DAYS active Not Available Not Available No t Available amoxicillin 875 mg-potassiu m clavulanate 125 mg tablet TAKE 1 TABLET BY MOUTH EVERY 12 HOURS FOR 7 DAYS 06/14 completed Not Available Not Available Not Available Paxlovid 300 mg (150 mg x 2)-100 mg tablets in a dose pack TAKE 3 TABLETS BY MOUTH TWICE A DAY FOR 5 DAYS 06/14 completed Not Available Not Available Not Available Vitals Date Recorded Body height Body weight Provider Name and Address Organization Details Last Updated DateTime 06/14/2024 187.96 cm 363325.21 g Dot Cisse [place] - [facility] 06/14/2024 16:20:54 Social History None recorded. Functional Status None recorded. Mental Status None recorded. Family History Nothing Reported. Medical History Condition Response Hearing Loss Y Past Encounters Encounter ID Performer Location Encounter Start Date Encounter Closed Date Diagnosis/Indication Diagnosis SNOMED-CT Code Diagnosis ICD10 Code Diagnosis IMO Codes Diagnosis Note [id number] ROBE FRIEDMAN MD [facility] [address] [address] 06/14/2024 15:31:25 06/14/2024 16:41:56 Sensorineural hearing loss of bilateral ears 186715048 H90.3 Audiologic al evaluation results:Ri ght ear:Normal through 2 kHz sloping to a moderate at 3kHz raising to mild at 8kHz sensorineu ral hearing loss with good word recognitio n.Left ear:Normal sloping to a moderate at 4kHz raising to WNL at 8kHz sensorineu ral hearing loss with excellent word recognitio n. Tympanomet ry:Right Ear:Type ALeft Ear:Type A Bilateral exostosis of external ear canals [id number] 383874 H61.813 Patient has mild bilateral exostoses which require no further workup or interventi on. Nasal obstruction 219395 000 J34.89 Patient has nasal obstructio n with turbinate hypertroph y. He has been on Flonase for about a month and is feeling better. I recommende d strongly against the continued use of vasoconstr ictors such as Afrin. If he is still having significan t problems with nasal obstructio n despite prolonged use of fluticason e nasal spray, he should come back to see one of my partners to discuss possible candidacy for surgical interventi on. Noise effe cts on inner ear 56402087 H83.3X3 Acute labyrinthitis 4336 039799 15029 H83.09 Health Concerns Section Related Observation LastModified by Organization Detai ls LastModified Time None Recorded Concern Status LastModified by Organization Details LastModified Time None Recorded Advance Directives Directive None Recorded Payers Insurance Date Sequence Insurance Name Policy Number Policy Henry Covered Member ID Henry Member ID Guarantor Name 06/14/[address] [place] [address] [id number] Will Bacon Jr [id number] Will Bacon Jr Notes Date Note Type Note Provider Name and Address Organization Details Recorded Time 06/14/2024 text/html Patient who I last saw back in July 2022. He was having some periauricular discomfort which appeared to be secondary to irritation of the TMJ. Patient was back today for evaluation of some vertigo that he had back in the fall. Patient reports that he had COVID in April. He took Paxlovid for a few days, but stopped before full course. He had persistent post-COVID symptoms for about a month afterwards including headache. Near the end of this course, he was driving and had to turn his head quickly due to a loud noise and then subsequently began noticing significant dizziness and nausea such that he could not continue driving. He had spinning sensation which lasted for most of the day, but started feeling better the next day. He saw his primary care physician Dr. Braxton who treated him with 10-day course of steroids as well as some antibiotics. Symptoms resolved. Patient did have MRI scan of the brain and internal auditory canals with gadolinium which showed no intracranial or retrocochlear pathology. He had mild recurrence of symptoms after sleeping on his boat, which was easily treated with meclizine. He does admit that he is prone to seasickness in general. 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 He had been using Afrin nasal spray intermittently in the past, but recently started using Flonase daily at bedtime. ROBE FRIEDMAN MD [address] [place] [address], [place], [address], [facility] - [facility] 06/14/2024 16:58:26
--- OUTSIDE RECORDS SUMMARY | 2025-05-22 21:01 | XMS_ITS | Patient Health Record ---
Author Organization Tristen Braxton III, MD Address [address] [place] [address] [place] [address] Care Team Providers Care Property Adjuster Name Role Phone Dr. Tristen Braxton III Primary Care Provider [phone] Allergies Allergen (clinical drug ingredient) Drug/Non Drug Allergy documented on EMR Reaction Allergy Type Onset Date Status No Known Drug Allergy Unknown Drug Allergy Active azithromycin Azithromycin nausea Drug Allergy A ctive Results Component Value Reference Range Notes URINE [...] 1.3 BLD 50 Negative - Menstrating N/A Complete Blood Count Auto Di ff (Not yet reviewed by provider) Interpretation: Performing Lab:[facility], [address] [place] [phone] Notes/Report: White Blood Count 6.5 4.8-10.8 X10*3/uL Red Blood Count 4.67 4.60-5.80 X10*6/uL Hemoglobin 14.2 14.0-18.0 g/dl Hematocrit 43.1 42.0-52.0 % Mean Corpuscular Volume 92.3 80.0-98.0 fL Mean Corpuscular Hemoglobin 30.4 27.0-33.0 pg Mean Corpuscular HGB Conc 32.9 31.0-36.0 g/dl Red Cell Distribution Width 12.1 11.0-16.0 % Platelet Count 232 160-400 X10*3/uL Mean Platelet Volume 9.7 9.4-12.4 fL Neutrophils Percent Auto 62.6 45-73 % Imm Gran Pct Auto 0.2 0.0-0.4 % Lymphocytes Percent Auto 28.5 20-40 % Monocytes Percent Auto 7.3 2-11 % Eosinophils Percent Auto 1.1 0-4 % Basophils Percent Auto 0.3 0-2 % NRBC Pct Auto 0.0 0.0-0.2 /100WBC Neutrophils Absolute Auto 4.1 2.0-8.3 x10*3/u L Imm Gran Abs Auto 0.01 0.00-0.03 X10*3/uL Lymphocytes Absolute Auto 1.9 1.2-4.9 X10*3/u L Monocytes Absolute Auto 0.5 0.1-1.2 X10*3/uL Eosinophils Absolute Auto 0.1 0.0-0.4 X10*3/u L Basophils Absolute Auto 0.0 0.0-0.2 X10*3/uL NRBC Abs Auto 0.000 0.0-0.012 X10*3/uL Comprehensive [place]. Panel Fa st (Not yet reviewed by provider) Interpretation: Performing Lab:[facility], [address] [place] [phone] Notes/Report: Sodium 137 135-145 mmol/L Potassium 4.1 3.3-5.1 mmol/L Chloride 106 96-108 mmol/L Carbon Dioxide 24 22-29 mmol/L Anion Gap 11 12-20 Blood Urea Nitrogen 21 9-16 mg/dL Creatinine 0.89 0.5-1.4 mg/dL Estimated Glomerular Filt Rate > 60 Chronic Kidney Disease: Estimated GFR < 60 mL/min/1.73m2 Severe Kidney Disease: Estimated GFR < 15 mL/min/1.73m2 Glucose Fasting 108 60-99 mg/dL A fasting glucose from 100-125 mg/dl is considered impaired (pre-diabetes). Calcium 9.0 8.4-10.2 mg/dL Bilirubin Total 0.6 0.0-1.0 mg/dL Aspartate Amino Transferase 32 5-37 U/L Alanine Aminotransferase 37 0-40 U/L Total Protein 7.5 6.5-8.0 g/dL Albumin Level 4.7 3.5-5.0 g/dL Alkaline Phosphatase 65 39-117 U/L Lipid Panel (Not yet reviewe d by provider) Interpretation: Performing Lab:[facility], [address] [place] [phone] Notes/Report: Triglycerides 80 <150 mg/dL Desirable Triglyceride: less than 150 mg/dL Borderline High Triglyceride 150-199 mg/dL High Triglyceride: 200-499 mg/dL Very High Triglyceride: greater than or equal to 5OO mg/dL Cholesterol 242 <200 mg/dL Desirable Cholesterol: less than 200 mg/dL Borderline High Cholesterol: 200-239 mg/dL High Cholesterol: greater than 239 mg/dL LDL Cholesterol Calculated 172 <100 mg/dL Desirable LDL: less than 100 mg/dL Near Optimal/Above Optimal LDL: 110-129 mg/dL Borderline High LDL: 130-159 mg/dL High LDL: 160-189 mg/dL Very High LDL: greater than or equal to 190 mg/dL HDL Cholesterol 54 >40 mg/dL Desirable HDL: greater than 40 mg/dL Note: This HDL assay may give artificially low results in patients with liver disease. Prostate Specific Antigen (N ot yet reviewed by provider) Interpretation: Performing Lab:[facility], [address] [place] [phone] Notes/Report: Prostate Specific Antigen 0.29 <0.05-4.0 ng/mL PSA methodology: [employer] Alinity i Chemiluminescent Microparticle Immunoassay (CMIA) Reason For Referral No Information Medications Medication SIG (Take, Route, Frequency, Duration) [...] TWICE A DAY FOR 2 WEEKS Active Immunizations Vaccine Route Administration Date Status Comme nts COVID- 19 Vaccine Unknown 09/06/2020 Administered Influenza, quad Unknown 05/09/2017 Administered COVID Pfizer Bivalent Unknown 06/13/2022 Administered COVID 19 Moderna Unknown 10/04/2020 Administered Influenza, quad Unknown 05/29/2019 Administered Influenza, quad Unknown 05/18/2021 Administered COVID 19 Moderna Unknown 06/05/2021 Administered Influenza no Preserv 3 and > Unknown 05/06/2023 Administered Pt received flu vaccine at [facility] Influenza no Preserv 3 and > Unknown 04/09/2025 Administered Social History Tobacco Use: Social History Observation [...] ast year? No Points 0 Interpretation Negative Problems Problem Type SNOMED Code ICD Code Onset Dates Problem Status W/U Status Risk Notes Problem 8505640 Former smoker (Z87.891) Active confirmed He has a plan to prevent relapse in times of stress and illness. Problem 976421449 Other obesity due to excess calories (E66.09) Active confirmed We have discussed weight loss strategies. We discussed diet and nutrition. We made a plan to lose weight, irregular, one half of a pound per week.He has gained 5 pounds since his last visit. Problem Benign prostatic hypertrophy without outflow obstruction (619698746) BPH (benign prostatic hypertrophy) (N40.0) Active confirmed His BPH is stable with nocturia oncee a night. We have discussed lifestyle modifications he could make to relieve this. Problem Hearing loss (16762632) Hearing loss (H91.90) Active confirmed . He reports mild to moderate hearing loss in each year, which is now worse on the right side. He will continue to be seen by ENT. Problem Tinnitus (90947115) Tinnitus (H93.19) Active confirmed He says he has been having mild tinnitus in the right ear Problem Hyperlipidaemia (06551913) Hyperlipidemia, unspecified hyperlipidemia type (E78.5) Active confirmed Comprehensive blood work has been ordered. Problem 586849813 Body mass index (BMI) of 34.0-34.9 in adult (Z68.34) Active confirmed His body mass index is 30. He is in the obese range. We discussed weight reduction strategies at length today. Problem Gastroesophageal reflux disease (disorder) (942582563) Chronic GERD (K21.9) Active confirmed He was continued on as needed liquid antacids and omeprazole. Problem 533650900 Non-recurrent acute serous otitis media of left ear (H65.02) Active confirmed He was given a prescription for Augmentin for 10 days. Vital Signs Heart Rate 82 /min 05/24/2024 Temperature 98.8 degrees Fahrenheit 05/24/2024 Blood pressure diastolic 82 mm Hg 05/24/2024 Height 73 in 01/05/2025 Blood pressure systolic 135 mm Hg 05/24/2024 Weight 243 lbs 01/05/2025 BMI 32.06 kg/m2 01/05/2025 Encounters Encounter Location Date Provider Diagnosis Tristen Braxton III, MD [address] [place] [address] [place] [phone] 05/24/2024 Tristen Braxton Hearing loss H91.90 ; Hyperlipidemia, unspecified hyperlipidemia type E78.5 ; Chronic GERD K21.9 ; Other obesity due to excess calories E66.09 and BPH (benign prostatic hypertrophy) N40.0 Tristen Braxton III, MD [address] [place] [address] [place] [phone] 01/03/2025 Tristen Braxton Hearing loss H91.90 ; Acute bronchitis due to other specified organisms J20.8 ; Hyperlipidemia, unspecified hyperlipidemia type E78.5 ; Chronic GERD K21.9 ; Other obesity due to excess calories E66.09 ; Tinnitus H93.19 and Former smoker Z87.891 Tristen Braxton III, MD [address] [place] [address] [place] [address] 01/05/2025 Tristen Braxton Acute bronchitis due to other specified organisms J20.8 ; Chronic GERD K21.9 ; Hyperlipidemia, unspecified hyperlipidemia type E78.5 ; Hearing loss H91.90 ; Former smoker Z87.891 and BPH (benign prostatic hypertrophy) N40.0 Tristen Braxton III, MD [address] [place] [address] [place] [address] 07/19/2024 Tristen Braxton Hyperlipidemia, unspecified hyperlipidemia type [...] Comprehensive blood work has been ordered. 01/03/2025 Acute bronchitis due to other specified organisms (ICD-10 - J20.8) He was given a follow-up appointment as well as a prescription for azithromycin. 01/03/2025 Hearing loss (ICD-10 - H91.90) . He reports mild to moderate hearing loss in each year, which is now worse on the right side. He will continue to be seen by ENT. 01/05/2025 Acute bronchitis due to other specified organisms (ICD-10 - J20.8) I have replacement azithromycin with amoxicillin for which is not allergic and has never been intolerant. 01/05/2025 Chronic GERD (ICD-10 - K21.9) He was continued on as needed liquid antacids and omeprazole. 07/19/2024 Hyperlipidemia, unspecified hyperlipidemia type (ICD-10 - E78.5) 05/24/2024 Chronic GERD (ICD-10 - K21.9) He was continued on as needed liquid antacids and omeprazole. 01/03/2025 Hyperlipidemia, unspecified hyperlipidemia type (ICD-10 - E78.5) Comprehensive blood work has been ordered. 01/05/2025 Hyperlipidemia, unspecified hyperlipidemia type (ICD-10 - E78.5) Comprehensive blood work has been ordered. 07/19/2024 Chronic GERD (ICD-10 - K21.9) 05/24/2024 Other obesity due to excess calories (ICD-10 - E66.09) We have discussed weight loss strategies. We discussed diet and nutrition. We made a plan to lose weight, irregular, one half of a pound per week.He has gained 5 pounds since his last visit. 01/03/2025 Chronic GERD (ICD-10 - K21.9) He was continued on as needed liquid antacids and omeprazole. 01/05/2025 Hearing loss (ICD-10 - H91.90) . He reports mild to moderate hearing loss in each year, which is now worse on the right side. He will continue to be seen by ENT. 07/19/2024 BPH (benign prostati c hypertrophy) (ICD-10 - N40.0) 05/24/2024 BPH (benign prostati c hypertrophy) (ICD-10 - N40.0) His BPH is stable with nocturia oncee a night. We have discussed lifestyle modifications he could make to relieve this. 01/03/2025 Other obesity due to excess calories (ICD-10 - E66.09) We have discussed weight loss strategies. We discussed diet and nutrition. We made a plan to lose weight, irregular, one half of a pound per week.He has gained 5 pounds since his last visit. 01/05/2025 Former smoker (ICD-1 0 - Z87.891) He has a plan to prevent relapse in times of stress and illness. 01/03/2025 Tinnitus (ICD-10 - H93.19) He says he has been having mild tinnitus in the right ear 01/05/2025 BPH (benign prostati c hypertrophy) (ICD-10 - N40.0) His BPH is stable with nocturia oncee a night. We have discussed lifestyle modifications he could make to relieve this. 01/03/2025 Former smoker (ICD-1 0 - Z87.891) He has a plan to prevent relapse in times of stress and illness. Plan Of Treatment Pending Test Test Name Order Date GUAIAC, SINGLE SPECIMEN 04/09/2020 PROFILE, FASTING (COMPREHENSIVE METABOLI C) 06/05/2022 PROFILE, FASTING (COMPREHENSIVE METABOLI C) 05/02/2024 PROFILE, FASTING (COMPREHENSIVE METABOLI C) 04/08/2021 PROFILE, FASTING (COMPREHENSIVE METABOLI C) 05/28/2021 PROFILE, FASTING (COMPREHENSIVE METABOLI C) 06/16/2023 PROFILE, FASTING (COMPREHENSIVE METABOLI C) 04/09/2020 PROFILE, FASTING (COMPREHENSIVE METABOLI C) 07/19/2024 PROFILE, FASTING (COMPREHENSIVE METABOLI C) 04/25/2019 PROFILE, RANDOM (COMPREHENSIVE METABOLIC ) 10/05/2018 HEMOGLOBIN A1C (GLYCOHEMOGLOBIN) 021 LIPID PANEL 04/25/2019 LIPID PANEL 11/28/2022 LIPID PANEL 10/05/2018 LIPID PANEL 05/28/2021 LIPID PANEL 04/09/2020 PSA, TOTAL 07/19/2024 PSA, TOTAL 11/28/2022 PSA, TOTAL 05/02/2024 PSA, TOTAL 04/08/2021 PSA, TOTAL 06/16/2023 PSA, TOTAL 04/09/2020 CBC w DIFF 04/09/2020 CBC w DIFF 07/19/2024 CBC w DIFF 04/25/2019 CBC w DIFF 06/05/2022 CBC w DIFF 10/05/2018 CBC w DIFF 04/08/2021 CBC w DIFF 06/16/2023 CBC w DIFF 05/28/2021 SED RATE (ESR) 05/02/2024 MRI BRAIN W&WO CONTRAST 05/11/2024 CBC WITH AUTO DIFF 05/02/2024 Complete Blood Count Auto Diff Comprehensive [place]. Panel Fast Lipid Panel 06/16/2023 Lipid Panel 07/19/2024 Lipid Panel 06/05/2022 Lipid Panel 04/08/2021 Lipid Panel 05/02/2024 Lipid Panel 05/22/2025 Prostate Specific Antigen 05/22/2025 Hemoglobin A1c 06/05/2022 Next Appt Details Provider Name:Tristen Braxton , 05/26/2025 01:45:00 PM, [address] [place] [address] [address], [address], [place], [address], Insurance Providers Payer Name Payer Address Payer Phone Subscriber Number Group Number Insured Name Patient Relationship to Insured Coverage Start Date Coverage End Date [facility] [address] [facility] [phone] [id number] [facility] LUCIO PECK Self - patient is the insured Medical (General) History Medical History History ICD Code gerd childhood heart murmur obesity hyperlipidemia bunion left foot requiring surgery resected cyst on the right patella Septe mber 2013 allergy to shellfish Tinnitus, hearing loss, vertigo, right e ar Surgical History Surgery Date(Month/Year) No history resected bunion left foot upper endoscopy for esophagitis, Dr. De Leon e left foot bone spur 2016 right knee arthroscopy x2 2013 Hospitalization History Reason Date(Month/Year) No history
== END 2025-05-22 10:03 | disposition home or self-care (01) ==
LOC: HO.10HDL 10:02
PROVIDERS: Visit Provider Internal Medicine Medical Oncology
DX: K21.9 Gastro-esophageal reflux disease without esophagitis (principal); E78.5 Hyperlipidemia, unspecified; N40.0 Benign prostatic hyperplasia without lower urinary tract symptoms; Z12.5 Encounter for screening for malignant neoplasm of prostate
CPT/HCPCS: 36415; 80053; 80061; 84153; 85025